=== PATIENT | female | born 1940 | race Caucasian/White ===

== ENCOUNTER → 2018-03-21 | Outpatient (CLI) | payer OTHER | LOC: HYPER 03-14 09:51 | DX: T81.89XA Other complications of procedures, not elsewhere classified, initial encounter (principal); I83.211 Varicose veins of right lower extremity with both ulcer of thigh and inflammation; L97.112 Non-pressure chronic ulcer of right thigh with fat layer exposed; I83.221 Varicose veins of left lower extremity with both ulcer of thigh and inflammation; L97.121 Non-pressure chronic ulcer of left thigh limited to breakdown of skin; E78.5 Hyperlipidemia, unspecified; G25.81 Restless legs syndrome; I10 Essential (primary) hypertension; J45.909 Unspecified asthma, uncomplicated; J42 Unspecified chronic bronchitis; M19.90 Unspecified osteoarthritis, unspecified site; Z96.653 Presence of artificial knee joint, bilateral; Z96.611 Presence of right artificial shoulder joint; Z96.612 Presence of left artificial shoulder joint; Y83.8 Other surgical procedures as the cause of abnormal reaction of the patient, or of later complication, without mention of misadventure at the time of the procedure ==

== ENCOUNTER → 2018-04-08 | Outpatient (CLI) | payer OTHER | LOC: HYPER 03-28 09:04 | DX: T81.89XD Other complications of procedures, not elsewhere classified, subsequent encounter (principal); I83.011 Varicose veins of right lower extremity with ulcer of thigh; L97.112 Non-pressure chronic ulcer of right thigh with fat layer exposed; I83.11 Varicose veins of right lower extremity with inflammation; I83.12 Varicose veins of left lower extremity with inflammation; G25.81 Restless legs syndrome; Y83.8 Other surgical procedures as the cause of abnormal reaction of the patient, or of later complication, without mention of misadventure at the time of the procedure ==